=== PATIENT | male | born 1980 | race Hispanic/Latino ===

== ENCOUNTER 2021-02-19 09:22 | Emergency (ER) | payer MEDICAID, OTHER ==
[~2021-02-19] VITALS: Ht 172.7 cm; Wt 81.6 kg
[2021-02-19 09:39] VITALS: BP 108/67
[2021-02-19] MEDS ORDERED: DEXAMETHASONE 4 MG TAB PO SCH (10:30)
[2021-02-19] MEDS ORDERED: AZIT500T4 PO (10:44)
[2021-02-19] MEDS ORDERED: IBUP-2070 PO (10:44)
[2021-02-19] MEDS ORDERED: D-ME118S47 PO (10:44)
== END 2021-02-19 11:00 | disposition home or self-care (01) ==
LOC: EDH 09:22 → EDBD 09:22 → EDH 11:00
DX: U07.1 COVID-19 (principal)
CPT/HCPCS: 87635; 87804; C9803; J8540